=== PATIENT | male | born 1990 | race African-American/Black ===

== ENCOUNTER 2017-05-16 02:43 | Emergency (ER) | payer SELFPAY ==
[~2017-05-16 02:43] MED LIST: CIPR500T4 PO; HYDR50 PO; IBUP800T23 PO
[2017-05-16 02:44] VITALS: BP 167/71; PULSE 82; RESP 16; TEMP 98.1; O2SAT 97
[2017-05-16] MEDS ORDERED: ULTR50TA5 PO (02:59)
[2017-05-16] MEDS ORDERED: PERI0.126 SWISH-SPIT (02:59)
[2017-05-16] MEDS ORDERED: IBUP800T23 PO (02:59)
[2017-05-16] MEDS ORDERED: PENI500T PO (02:59)
--- NOTE | 2017-05-16 02:59 | PD ---
HPI Chief Complaint: Oral / Dental Pain or Problem Time Seen by Provider: 02:56 Travel History International Travel<30 days: No Contact w/Intl Traveler<30days: No Traveled to known affect area: No History of Present Illness HPI 46-year-old male presents to the emergency department for evaluation of left mandibular first molar pain. Patient states his tooth broke about 2 weeks ago. It has been very painful and worsening since. It is a constant, throbbing, radiates to his left ear. Denies any trauma. No other symptoms to report. PFSH Past Medical History Medical History: Denies Significant Hx Diminished Hearing: No Immunizations Current: Yes Past Surgical History Tonsillectomy: Yes Other Surgery: Yes (ADENOIDS REMOVED) Social History Alcohol Use: Yes (1 BEER DAILY) Tobacco Use: Yes (2-3 CIGARS) Substance Use: Yes (OCC MARIJUANA (LAST USE TODAY)) Allergies-Medications (Allergen,Severity, Reaction): Coded Allergies: No Known Allergies (Verified Allergy, Unknown, 05/16/17) Reported Meds & Prescriptions Reported Meds & Active Scripts Active Penicillin V Potassium 500 Mg Tab 500 Mg PO Q6H 10 Days Peridex Liq (Chlorhexidine Gluconate (Mouth) Liq) 0.12% Soln 15 Ml SWISH-SPIT BID 14 Days Ultram (Tramadol HCl) 50 Mg Tab 50 Mg PO Q8H PRN Ibuprofen 800 Mg Tab 800 Mg PO Q8H PRN Review of Systems Except as stated in HPI: all other systems reviewed are Neg Physical Exam Narrative GENERAL: Well-nourished, well-developed male SKIN: Focused skin assessment warm/dry. HEAD: Normocephalic. No erythema or edema EYES: No scleral icterus. No injection or drainage. DENTAL: No loose teeth. The left mandibular first molar has a large dental caries extending into the pulp. Mild gingival erythema and edema surrounding it. No appreciable abscess. No malocclusion. Submental spaces soft. NECK: Supple, trachea midline. No JVD or lymphadenopathy. CARDIOVASCULAR: Regular rate and rhythm without murmurs, gallops, or rubs. RESPIRATORY: Breath sounds equal bilaterally. No accessory muscle use. Data Data Last Documented VS Vital Signs Date Time Temp Pulse Resp B/P (MAP) Pulse Ox O2 Delivery O2 Flow Rate FiO2 05/16/17 03:01 9/21/17 02:44 98.1 82 16 97 Room Air Orders Orders Ketorolac Inj (Toradol Inj) (05/16/17 03:00) Acetamin-Hydrocod 325-5 Mg ([place] 5-325 (05/16/17 03:00) Penicillin V Potassium (Veetids) (05/16/17 03:00) MDM Medical Decision Making Medical Screen Exam Complete: Yes Emergency Medical Condition: Yes Medical Record Reviewed: Yes Differential Diagnosis Gingivitis versus pulpitis versus periodontal disease versus dental caries versus dental abscess Narrative Course 46-year-old male presents to emergency department for evaluation of left mandibular tooth pain. Patient has a large dental Priscilla extending into the pulp of the left mandibular first molar. I have advised him that the only way to completely fix this is to seek dental evaluation. However in the meantime he will be started on Pen-Vee K, pain control, and Peridex oral rinse. He verbalizes understanding of the splenic care. He agrees to return immediately with any acute worsening of symptoms. Diagnosis Primary Impression: Dentalgia Additional Impressions: Dental caries into pulp Gingivitis Referrals: Dentist Primary Care Physician Patient Instructions: Dental Caries (ED), General Instructions Additional Instructions: Seek dental evaluation Start antibiotic today and take it until it is all finished Return immediately to the emergency department with any acute worsening of symptoms Med/Other Pt SpecificInfo: Prescription(s) given Scripts Penicillin V Potassium (Penicillin V Potassium) 500 Mg Tab 500 MG PO Q6H for Infection for 10 Days, #40 TAB 0 Refills Prov: Trisha Lara 05/16/17 Chlorhexidine Gluconate (Mouth) Liq (Peridex Liq) 0.12% Soln 15 ML SWISH-SPIT BID for 14 Days, #420 ML 0 Refills Prov: Trisha Lara 05/16/17 Tramadol (Ultram) 50 Mg Tab 50 MG PO Q8H Y for PAIN GREATER THAN 6, #20 TAB 0 Refills Prov: Trisha Lara 05/16/17 Ibuprofen (Ibuprofen) 800 Mg Tab 800 MG PO Q8H Y for Pain/Inflammation, #30 TAB 0 Refills Prov: Trisha Lara 05/16/17 Disposition: 01 DISCHARGE HOME Condition: Stable Trisha Lara May 16, 2017 02:59
[2017-05-16] MEDS ORDERED: ACETAMINOPHEN/HYDROcodone 325 MG/5 MG TAB PO ONE (03:00)
[2017-05-16] MEDS ORDERED: PENICILLIN V POTASSIUM 500 MG TAB PO ONE (03:00)
[2017-05-16] MEDS ORDERED: KETOROLAC TROMETHAMINE 60 MG/2 ML (IM) VIAL IM ONE (03:00)
== END 2017-05-16 03:09 | disposition home or self-care (01) ==
LOC: NEPD 02:43
DX: K02.53 Dental caries on pit and fissure surface penetrating into pulp (principal); K05.10 Chronic gingivitis, plaque induced
CPT/HCPCS: 96372; 99284; J1885